=== PATIENT | female | born 1985 | race Hispanic/Latino ===

== ENCOUNTER 2018-01-31 12:09 | Inpatient (IN) | payer MEDICAID, SELFPAY ==
[2018-01-31] VITALS (9 sets, daily range): BP systolic 112–136; BP diastolic 70–83
[~2018-01-31] VITALS: Ht 152.4 cm; Wt 54.0 kg
[~2018-01-31 12:09] MED LIST: CIPR-245 PO; FLUOXETINA PO; INSU100I13 SQ; INSU100V SQ; LISI10TA7 PO; TRAMADOL PO; [UNRECOGNIZED DRUG - OTHER] PO
[2018-01-31] MEDS ORDERED: SODIUM CHLORIDE 0.9% 1000ML 1,000 ML IV ONE ×3 (12:39→15:15)
[2018-01-31] MEDS ORDERED: ONDANSETRON HCL MDV 20ML 2 MG/ML VIAL ONE (12:40)
[2018-01-31 12:43] LABS: BASOPHILS % (AUTO) 0.3 % (0.0-5.0); HEMATOCRIT 43.4 % (36-48); LYMPHOCYTES % (AUTO) 17.6 % (21.0-51.0); MEAN CORPUSCULAR HEMOGLOBIN 30.5 pg (27.0-33.0); MEAN CORPUSCULAR HGB CONC 32.5 g/dL (32.0-36.0); MEAN CORPUSCULAR VOLUME 93.7 fL (79-99); MONOCYTES % (AUTO) 6.5 % (3.0-13.0); NEUTROPHILS % (AUTO) 75.6 % (40.0-77.0); PLATELET COUNT (AUTO) 234 K/uL (130-400); RED BLOOD CELL COUNT(AUTO) 4.63 MIL/uL (4.00-5.50); RED CELL DISTRIBUTION WIDTH 15.5 % (11.0-15.5); WHITE BLOOD COUNT (AUTO) 9.3 K/uL (4.8-10.8)
[2018-01-31 12:53] LABS: ACETONE,BLOOD POSITIVE SMALL (NEGATIVE)
[2018-01-31 12:55] LABS: CHLORIDE 91 mmol/L (101-111); GLOMERULAR FILTR. RATE CALC 68 mL/min (>60); SODIUM SERUM 130 mmol/L (136-145); UREA NITROGEN, BLOOD 26 mg/dL (7-18)
[2018-01-31 12:56] LABS: ALANINE AMINOTRANSFERASE 275 U/L (12-78); ALBUMIN 3.9 g/dL (3.5-5.0); ASPARTATE AMINOTRANSFERASE 217 U/L (10-37); BILIRUBIN,TOTAL 0.7 mg/dL (0.2-1.0); CARBON DIOXIDE 11 mmol/L (21-32); GLUCOSE,RANDOM 659 mg/dL (70-105); TOTAL PROTEIN, SERUM 9.4 g/dL (6.0-8.3)
[2018-01-31 13:04] LABS: ABG BASE EXCESS -19.8 mmol/L (-2.0-3.0); ABG HCO3 7.1 mmol/L (21.0-28.0); ABG OXYGEN SATURATION 97.3 % (95.0-99.0); ABG PCO2 21 mmHg (32-45)
[2018-01-31] MEDS ORDERED: SODIUM BICARB 50MEQ 50ML VIAL ONE (13:20)
[2018-01-31] MEDS ORDERED: SODIUM CHLORIDE 0.9% 100 ML IV ONE (13:21)
[2018-01-31] MEDS ORDERED: INSULIN HUMULIN R 100 UNIT/ML 3ML ONE (13:22)
[2018-01-31 13:34] LABS: POTASSIUM 5.4 mmol/L (3.5-5.1)
[2018-01-31 14:04] LABS: APPEARANCE,URINE CLEAR (CLEAR); BILIRUBIN,URINE NEGATIVE (NEGATIVE); COLOR,URINE YELLOW (YELLOW); GLUCOSE, URINE (UA) 500 mg/dL (NEGATIVE); KETONES,URINE >=80 mg/dL (NEGATIVE); LEUKOCYTE ESTERASE ,URINE NEGATIVE (NEGATIVE); NITRATE,URINE NEGATIVE (NEGATIVE); OCCULT BLOOD,URINE TRACE-LYSED (NEGATIVE); PH,URINE 5.5 (5.0-8.0); PROTEIN,URINE 30 (NEGATIVE); UROBILINOGEN,URINE 0.2 mg/dL (0.2-1.0)
[2018-01-31 14:21] LABS: BACTERIA,URINE Rare /HPF (None Seen); MUCUS,URINE Rare LPF (None Seen); RBC,URINE 0-1 /HPF (0-1); WBC,URINE None Seen /HPF (0-1)
[2018-01-31] MEDS ORDERED: LIDOCAINE HCL-MPF 1% 2ML VIAL IVP PRN (15:15)
[2018-01-31] MEDS ORDERED: SODIUM CHLORIDE 0.9% 1000ML 1,000 ML IV PRN (15:15)
[2018-01-31] MEDS ORDERED: POTASSIUM CHLORIDE 20MEQ/100ML 100 ML IV PRN (15:15)
[2018-01-31] MEDS ORDERED: POTASSIUM CHLORIDE 10% ELIXIR 20 MEQ/15 ML UDCUP PO PRN (15:15)
[2018-01-31] MEDS ORDERED: ONDANSETRON HCL MDV 20ML 2 MG/ML VIAL IV PRN (15:15)
[2018-01-31] MEDS ORDERED: INSULIN REGULAR, HUMAN 3ML 100 UNIT in SODIUM CHLORIDE 0.9% 99 ML IV PRN ×2 (15:15)
[2018-01-31] MEDS ORDERED: HYDRALAZINE HCL 20 MG/ML VIAL IV PRN (15:15)
[2018-01-31] MEDS ORDERED: CEFTRIAXONE 2GM+NS 100ML 100 ML IV ONE (16:30)
[2018-01-31 17:03] LABS: CREATININE 0.9 mg/dL (0.5-1.5); MAGNESIUM 1.8 mg/dL (1.80-2.40); POTASSIUM 3.9 mmol/L (3.5-5.1)
[2018-01-31] MEDS ORDERED: LOSA25TA21 PO (17:09)
[2018-01-31] MEDS ORDERED: AMIT25TA9 PO (17:09)
[2018-01-31] MEDS ORDERED: INSU100V12 SQ (17:09)
[2018-01-31] MEDS ORDERED: LORA10CA9 PO (17:09)
[2018-01-31] MEDS ORDERED: FISH1CAP20 PO (17:09)
[2018-01-31] MEDS ORDERED: ATOR40TA71 PO (17:09)
[2018-01-31] MEDS ORDERED: INSU100C6 SQ (17:09)
[2018-01-31] MEDS ORDERED: CEFTRIAXONE SODIUM 2 GM VIAL IVP SCH (17:30)
[2018-01-31] MEDS: MAGNESIUM 2GM PREMIX 50ML 50 ML IV PRN (18:01)
[2018-01-31] MEDS: BENZOCAINE/MENTH/CETYLPYRD CL 1 EACH LOZENGE MM PRN ×2 (18:23→20:12)
[2018-01-31] MEDS: DEXTROSE 5 % AND 0.9 % NACL 1,000 ML IV PRN (20:11)
[2018-01-31] MEDS: FAMOTIDINE/PF 20 MG/2 ML VIAL IV SCH (20:11)
[2018-01-31 20:51] LABS: CREATININE 1.2 mg/dL (0.5-1.5); MAGNESIUM 2.2 mg/dL (1.80-2.40); POTASSIUM 3.8 mmol/L (3.5-5.1)
[2018-01-31] MEDS: POTASSIUM CHLORIDE 20 MEQ ERTAB PO PRN (23:35)
[2018-02-01] VITALS (15 sets, daily range): BP systolic 96–137; BP diastolic 53–85
[2018-02-01 00:36] LABS: CREATININE 0.9 mg/dL (0.5-1.5); MAGNESIUM 1.9 mg/dL (1.80-2.40); POTASSIUM 4.1 mmol/L (3.5-5.1)
[2018-02-01] MEDS: MAGNESIUM 2GM PREMIX 50ML 50 ML IV PRN (00:52)
[2018-02-01] MEDS: DEXTROSE 5 % AND 0.9 % NACL 1,000 ML IV PRN (02:46)
[2018-02-01 04:38] LABS: HEMATOCRIT 33.7 % (36-48); MEAN CORPUSCULAR HEMOGLOBIN 30.1 pg (27.0-33.0); MEAN CORPUSCULAR HGB CONC 34.3 g/dL (32.0-36.0); MEAN CORPUSCULAR VOLUME 87.9 fL (79-99); PLATELET COUNT (AUTO) 214 K/uL (130-400); RED BLOOD CELL COUNT(AUTO) 3.83 MIL/uL (4.00-5.50); RED CELL DISTRIBUTION WIDTH 15.4 % (11.0-15.5)
[2018-02-01 04:54] LABS: CREATININE 0.8 mg/dL (0.5-1.5); MAGNESIUM 2.6 mg/dL (1.80-2.40); POTASSIUM 3.8 mmol/L (3.5-5.1)
[2018-02-01 08:22] LABS: CREATININE 0.7 mg/dL (0.5-1.5); MAGNESIUM 2.4 mg/dL (1.80-2.40); POTASSIUM 3.4 mmol/L (3.5-5.1)
[2018-02-01] MEDS: FAMOTIDINE/PF 20 MG/2 ML VIAL IV SCH ×2 (08:33→22:04)
[2018-02-01] MEDS: ENOXAPARIN SODIUM 40 MG/0.4 ML SYRINGE SQ SCH (08:34)
[2018-02-01] MEDS: POTASSIUM CHLORIDE 20 MEQ ERTAB PO PRN ×2 (08:56→10:12)
[2018-02-01] MEDS ORDERED: INSULIN LISPRO 100 UNIT/ML 3ML SQ SCH (09:15)
[2018-02-01] MEDS: INSULIN GLARGINE 100 UNITS/ML 10 ML VIAL SQ SCH (09:19)
[2018-02-01] MEDS: LORATADINE 10 MG TABLET PO SCH (09:30)
[2018-02-01] MEDS: PHENOL 177 ML BOTTLE PO PRN (10:13)
[2018-02-01] MEDS: INSULIN HUMULIN R 100 UNIT/ML 3ML SQ SCH ×4 (11:17→23:30)
[2018-02-01] MEDS ORDERED: INSULIN HUMULIN R 100 UNIT/ML 3ML SQ SCH (11:30)
[2018-02-01] MEDS: INSULIN LISPRO 100 UNIT/ML 3ML SQ SCH ×2 (11:57→16:44)
[2018-02-01] MEDS: FISH OIL 1000 MG/CAP PO SCH ×2 (13:37→22:04)
[2018-02-01] MEDS ORDERED: CEFTRIAXONE 1GM/D5W 50ML 50 ML IV SCH (16:00)
[2018-02-01] MEDS ORDERED: CEFTRIAXONE SODIUM 1 GM IVP SCH (17:00)
[2018-02-01] MEDS ORDERED: LOSARTAN 50 MG TABLET PO SCH (21:00)
[2018-02-01] MEDS ORDERED: AMITRIPTYLINE HCL 25 MG TABLET PO SCH (21:00)
[2018-02-02] VITALS: BP 125/78
[2018-02-02] MEDS: INSULIN HUMULIN R 100 UNIT/ML 3ML SQ SCH ×3 (03:30→11:45)
[2018-02-02 04:00] VITALS: BP 129/75
[2018-02-02 05:43] LABS: HEMATOCRIT 32.1 % (36-48); MEAN CORPUSCULAR HEMOGLOBIN 31.4 pg (27.0-33.0); MEAN CORPUSCULAR HGB CONC 36.1 g/dL (32.0-36.0); MEAN CORPUSCULAR VOLUME 86.8 fL (79-99); PLATELET COUNT (AUTO) 180 K/uL (130-400); RED CELL DISTRIBUTION WIDTH 14.9 % (11.0-15.5); WHITE BLOOD COUNT (AUTO) 6.2 K/uL (4.8-10.8)
[2018-02-02 05:58] LABS: CREATININE 0.4 mg/dL (0.5-1.5); POTASSIUM 3.2 mmol/L (3.5-5.1)
[2018-02-02] MEDS: POTASSIUM CHLORIDE 20 MEQ ERTAB PO PRN ×3 (06:11→11:52)
[2018-02-02 07:59] VITALS: BP 127/80
[2018-02-02] MEDS: INSULIN LISPRO 100 UNIT/ML 3ML SQ SCH ×2 (08:00→11:46)
[2018-02-02] MEDS ORDERED: ATORVASTATIN CALCIUM 40 MG TABLET PO SCH (09:00)
[2018-02-02] MEDS: FAMOTIDINE/PF 20 MG/2 ML VIAL IV SCH (09:34)
[2018-02-02] MEDS: FISH OIL 1000 MG/CAP PO SCH ×2 (09:42→14:21)
[2018-02-02] MEDS: LORATADINE 10 MG TABLET PO SCH (09:42)
[2018-02-02] MEDS: ENOXAPARIN SODIUM 40 MG/0.4 ML SYRINGE SQ SCH (09:43)
[2018-02-02] MEDS ORDERED: GUAIFENESIN-DM 200/20 MG 10 ML PO PRN (09:45)
[2018-02-02] MEDS: PHENOL 177 ML BOTTLE PO PRN (09:48)
[2018-02-02] MEDS: INSULIN GLARGINE 100 UNITS/ML 10 ML VIAL SQ SCH (10:10)
[2018-02-02 11:30] VITALS: BP 128/83
[2018-02-02 15:05] VITALS: BP 117/78
[2018-02-02] MEDS ORDERED: Benzocaine/Menth/Cetylpyrd Cl MM (15:20)
[2018-02-02] MEDS ORDERED: AMOX500C2 PO (15:20)
[2018-02-02] MEDS ORDERED: GUAI5SYR PO (15:20)
== END 2018-02-02 16:45 | disposition home or self-care (01) | DRG 420 ==
LOC: EDH 12:09 → 2BH 12:10 → 4BH 02-01 14:00
PROVIDERS: ADMIT Family Medicine; ATTEND Family Medicine
DX: E11.10 Type 2 diabetes mellitus with ketoacidosis without coma (principal); K76.0 Fatty (change of) liver, not elsewhere classified; E11.65 Type 2 diabetes mellitus with hyperglycemia; E86.0 Dehydration; I10 Essential (primary) hypertension; J02.0 Streptococcal pharyngitis; Z83.3 Family history of diabetes mellitus
CPT/HCPCS: 36415; 36600; 71045; 80048; 80053; 81001; 82009; 82803; 82948; 83735; 84443; 84703; 85025; 85027; 87633; 87880; A4218; J0696; J1650; J1815; J3475; J3490; J7030; J7042

== ENCOUNTER → 2019-02-09 | Outpatient (CLI) | payer MEDICAID ==
[~2019-02-09] MED LIST changes: +AMIT25TA9 PO; +AMOX500C2 PO; +ATOR40TA71 PO; +Benzocaine/Menth/Cetylpyrd Cl MM; -CIPR-245 PO; +FISH1CAP20 PO; -FLUOXETINA PO; +GUAI5SYR PO; +INSU100C6 SQ; -INSU100I13 SQ; -INSU100V SQ; +INSU100V12 SQ; -LISI10TA7 PO; +LORA10CA9 PO; +LOSA25TA41 PO; -TRAMADOL PO; -[UNRECOGNIZED DRUG - OTHER] PO
== END | disposition home or self-care (01) ==
LOC: LAB 08:50
PROVIDERS: ATTEND Psychiatry & Neurology Psychiatry
DX: R00.0 Tachycardia, unspecified (principal); Z79.899 Other long term (current) drug therapy
CPT/HCPCS: 93005

== ENCOUNTER 2021-02-03 19:04 | Inpatient (IN) | payer MEDICAID ==
[~2021-02-03] VITALS: Ht 157.5 cm; Wt 61.2 kg
[2021-02-03] MEDS ORDERED: ONDANSETRON 4MG INJ ONE (19:31)
[2021-02-03] MEDS ORDERED: KETOROLAC 30MG VIAL (30MG/ML) ONE (19:33)
[2021-02-03] MEDS ORDERED: DICYCLOMINE 20MG (10MG/ML) AMP IM ONE (19:33)
[2021-02-03 19:42] LABS: BASOPHILS % (AUTO) 0.3 % (0.0-5.0); EOSINOPHILS % (AUTO) 0.2 % (0.0-8.0); HEMATOCRIT 41.5 % (36-48); MEAN CORPUSCULAR HEMOGLOBIN 29.5 pg (27.0-33.0); MEAN CORPUSCULAR HGB CONC 32.3 g/dL (32.0-36.0); MEAN CORPUSCULAR VOLUME 91.4 fL (79-99); MONOCYTES % (AUTO) 5.3 % (3.0-13.0); PLATELET COUNT (AUTO) 311 K/uL (130-400); RED BLOOD CELL COUNT(AUTO) 4.54 MIL/uL (4.00-5.50); RED CELL DISTRIBUTION WIDTH 14.4 % (11.0-15.5)
[2021-02-03 20:17] LABS: ABG BASE EXCESS -23.2 mmol/L (-2.0-3.0); ABG HCO3 5.5 mmol/L (21.0-28.0); ABG OXYGEN SATURATION 97.1 % (95.0-99.0); ABG PCO2 20 mmHg (32-45)
[2021-02-03 20:19] LABS: CREATININE 1.8 mg/dL (0.5-1.5)
[2021-02-03] MEDS ORDERED: INSULIN HUMULIN R 100 UNIT/ML 3ML ONE ×2 (20:22→20:44)
[2021-02-03 20:29] LABS: BILIRUBIN,TOTAL 0.5 mg/dL (0.2-1.0)
[2021-02-03 20:30] LABS: ALBUMIN 4.3 g/dL (3.5-5.0)
[2021-02-03] MEDS ORDERED: SODIUM BICARB 50MEQ 50ML VIAL 50 ML ONE (20:30)
[2021-02-03] MEDS ORDERED: ONDANSETRON 4MG INJ IV PRN (20:45)
[2021-02-03] MEDS ORDERED: ACETAMINOPHEN 325 MG TAB PO PRN (20:45)
[2021-02-03] MEDS ORDERED: 0.9%NACL 100ML 100 ML IV ONE (20:46)
[2021-02-03] MEDS ORDERED: FAMOTIDINE 20MG VIAL IV SCH (21:00)
[2021-02-03] MEDS ORDERED: DEXTROSE 5 %-0.45 % NACL 1,000 ML IV PRN (21:00)
[2021-02-03] MEDS ORDERED: INSULIN REGULAR, HUMAN 3ML 100 UNIT in 0.9%NACL 100ML 99 ML IV PRN ×2 (21:00)
[2021-02-03] MEDS: FAMOTIDINE 20MG VIAL IV SCH (21:00)
[2021-02-03 21:06] LABS: APPEARANCE,URINE Clear (CLEAR); BILIRUBIN,URINE Negative (NEGATIVE); COLOR,URINE Yellow (YELLOW); GLUCOSE, URINE (UA) >=1000 mg/dL (NEGATIVE); KETONES,URINE >=160 mg/dL (NEGATIVE); LEUKOCYTE ESTERASE ,URINE Negative (NEGATIVE); NITRATE,URINE Negative (NEGATIVE); OCCULT BLOOD,URINE Small (NEGATIVE); PROTEIN,URINE POS 1+ mg/dL (NEGATIVE); UROBILINOGEN,URINE 0.2 mg/dL (0.2-1.0)
[2021-02-03 21:11] LABS: MAGNESIUM 2.7 mg/dL (1.80-2.40); PHOSPHORUS 8.1 mg/dL (2.5-4.9)
[2021-02-03 21:14] LABS: AMPHET/METH SCREEN,URINE NEGATIVE (NEGATIVE); BARBITURATE SCREEN, URINE NEGATIVE (NEGATIVE); BENZODIAZEPINES SCREEN,URINE NEGATIVE (NEGATIVE); CANNABINOID SCREEN,URINE NEGATIVE (NEGATIVE); COCAINE SCREEN,URINE NEGATIVE (NEGATIVE); OPIATE SCREEN,URINE NEGATIVE (NEGATIVE); PHENCYCLIDINE SCREEN,URINE NEGATIVE (NEGATIVE)
[2021-02-03 21:16] LABS: HCG,QUAL RESULT NEGATIVE (NEGATIVE)
[2021-02-03 21:25] LABS: BACTERIA,URINE Moderate /HPF (None Seen); SQUAMOUS EPITHELIAL CELL,UR Few /HPF (0-2)
[2021-02-03] MEDS: CEFTRIAXONE 1G VIAL IVP SCH (22:00)
[2021-02-03] MEDS ORDERED: CEFTRIAXONE 1G VIAL ONE (22:15)
[2021-02-04] VITALS (21 sets, daily range): BP systolic 110–151; BP diastolic 49–91
[2021-02-04 03:22] LABS: BASOPHILS % (AUTO) 0.2 % (0.0-5.0); EOSINOPHILS % (AUTO) 0.1 % (0.0-8.0); HEMATOCRIT 32.7 % (36-48); LYMPHOCYTES % (AUTO) 15.2 % (21.0-51.0); MEAN CORPUSCULAR HEMOGLOBIN 29.9 pg (27.0-33.0); MEAN CORPUSCULAR HGB CONC 33.3 g/dL (32.0-36.0); MEAN CORPUSCULAR VOLUME 89.8 fL (79-99); NEUTROPHILS % (AUTO) 77.3 % (40.0-77.0); PLATELET COUNT (AUTO) 220 K/uL (130-400); RED BLOOD CELL COUNT(AUTO) 3.64 MIL/uL (4.00-5.50); RED CELL DISTRIBUTION WIDTH 14.6 % (11.0-15.5)
[2021-02-04 03:26] LABS: ABG BASE EXCESS -17.6 mmol/L (-2.0-3.0); ABG HCO3 8.8 mmol/L (21.0-28.0); ABG PCO2 24 mmHg (32-45)
[2021-02-04 03:31] LABS: HEMOGLOBIN A1C 9.7 % (4.0-6.0)
[2021-02-04] MEDS: 0.9%NACL 1000ML 1,000 ML IV SCH ×4 (03:40→15:17)
[2021-02-04 03:47] LABS: CREATININE 1.2 mg/dL (0.5-1.5); MAGNESIUM 2.3 mg/dL (1.80-2.40); PHOSPHORUS 5.8 mg/dL (2.5-4.9); POTASSIUM 4.2 mmol/L (3.5-5.1); THYROID STIMULATING HORMONE 0.69 uIU/mL (0.36-3.74)
[2021-02-04] MEDS ORDERED: PHENOL 177 ML BOTTLE PO PRN (05:30)
[2021-02-04] MEDS: CEFTRIAXONE 1G VIAL IVP SCH ×2 (08:12→21:05)
[2021-02-04] MEDS: ENOXAPARIN SODIUM 30 MG/0.3 ML SQ SCH (08:12)
[2021-02-04 09:14] LABS: CREATININE 1.3 mg/dL (0.5-1.5); PHOSPHORUS 2.3 mg/dL (2.5-4.9); POTASSIUM 3.5 mmol/L (3.5-5.1)
[2021-02-04] MEDS ORDERED: LIDOCAINE HCL 2% VISCOUS 30 ML, MAG/ALUM/SIMETH 30ML 30 ML, BELLADONNA-PHENOBARB ELIXIR... PO PRN ×3 (11:15)
[2021-02-04] MEDS ORDERED: LIDO 2% VISC 30ML+MAG/AL/SIMETH 30ML+DICYCLOMINE 20MG 10ML PO PRN ×3 (11:30)
[2021-02-04] MEDS ORDERED: COMPOUND PO MISCELLANEOUS 1 EACH MISC MISC PRN (11:30)
[2021-02-04 14:12] LABS: CREATININE 1.1 mg/dL (0.5-1.5); MAGNESIUM 2.2 mg/dL (1.80-2.40); PHOSPHORUS 1.7 mg/dL (2.5-4.9); POTASSIUM 3.1 mmol/L (3.5-5.1)
[2021-02-04] MEDS: POTASSIUM CHLORIDE 10MEQ/100ML 100 ML IV PRN ×2 (14:31→15:17)
[2021-02-04 15:44] LABS: ABG BASE EXCESS -3.8 mmol/L (-2.0-3.0); ABG HCO3 20.5 mmol/L (21.0-28.0); ABG OXYGEN SATURATION 94.1 % (95.0-99.0); ABG PCO2 36 mmHg (32-45)
[2021-02-04] MEDS ORDERED: COMPOUND IV REFRIGERATED 1 EACH IVSOLN MISC PRN (16:45)
[2021-02-04] MEDS: ACETAMINOPHEN 325 MG TAB PO PRN (16:57)
[2021-02-04] MEDS: 1/2NS+20MEQ KCL/1000ML 1,000 ML IV SCH (17:07)
[2021-02-04] MEDS ORDERED: INSULIN GLARGINE 100 UNITS/ML 10 ML VIAL SQ ONE (17:40)
[2021-02-04] MEDS ORDERED: INSULIN HUMULIN R 100 UNIT/ML 3ML SQ SCH (18:00)
[2021-02-04] MEDS ORDERED: DSSL PO (18:19)
[2021-02-04] MEDS ORDERED: LEVAHFA IH (18:19)
[2021-02-04] MEDS ORDERED: VITAD50000 PO (18:19)
[2021-02-04] MEDS ORDERED: TRAZ-185 PO (18:19)
[2021-02-04] MEDS ORDERED: AEC81 PO (18:19)
[2021-02-04] MEDS ORDERED: SERT-439 PO (18:21)
[2021-02-04] MEDS: INSULIN HUMULIN R 100 UNIT/ML 3ML SQ SCH (20:36)
[2021-02-04] MEDS: FAMOTIDINE 20MG VIAL IV SCH (20:38)
[2021-02-04 20:43] LABS: PHOSPHORUS 1.5 mg/dL (2.5-4.9); POTASSIUM 3.4 mmol/L (3.5-5.1)
[2021-02-05] VITALS (13 sets, daily range): BP systolic 140–171; BP diastolic 67–96
[2021-02-05] MEDS: 1/2NS+20MEQ KCL/1000ML 1,000 ML IV SCH ×3 (00:01→21:57)
[2021-02-05] MEDS: INSULIN HUMULIN R 100 UNIT/ML 3ML SQ SCH ×8 (00:08→20:42)
[2021-02-05 03:51] LABS: CREATININE 0.9 mg/dL (0.5-1.5); MAGNESIUM 2.1 mg/dL (1.80-2.40); PHOSPHORUS 1.2 mg/dL (2.5-4.9); POTASSIUM 3.2 mmol/L (3.5-5.1)
[2021-02-05] MEDS: KCL 20 MEQ ERTAB PO SCH ×2 (05:15→05:57)
[2021-02-05] MEDS ORDERED: CALCIUM AC 667MG CAP PO SCH (05:15)
[2021-02-05] MEDS ORDERED: SOD PHOSPHATE 45 MMOL/15 ML VI 15 MMOL in 0.9% NACL 250ML 250 ML IV PRN (07:45)
[2021-02-05 07:53] LABS: BASOPHILS % (AUTO) 0.2 % (0.0-5.0); EOSINOPHILS % (AUTO) 0.1 % (0.0-8.0); HEMATOCRIT 30.5 % (36-48); LYMPHOCYTES % (AUTO) 20.3 % (21.0-51.0); MEAN CORPUSCULAR HEMOGLOBIN 29.3 pg (27.0-33.0); MEAN CORPUSCULAR HGB CONC 33.8 g/dL (32.0-36.0); MEAN CORPUSCULAR VOLUME 86.9 fL (79-99); MONOCYTES % (AUTO) 6.5 % (3.0-13.0); NEUTROPHILS % (AUTO) 72.4 % (40.0-77.0); PLATELET COUNT (AUTO) 184 K/uL (130-400); RED BLOOD CELL COUNT(AUTO) 3.51 MIL/uL (4.00-5.50); RED CELL DISTRIBUTION WIDTH 15.6 % (11.0-15.5); WHITE BLOOD COUNT (AUTO) 13.2 K/uL (4.8-10.8)
[2021-02-05] MEDS: ACETAMINOPHEN 325 MG TAB PO PRN (08:09)
[2021-02-05] MEDS: ENOXAPARIN SODIUM 30 MG/0.3 ML SQ SCH (08:10)
[2021-02-05] MEDS ORDERED: LEVALBUTEROL TARTRATE IH SCH (08:45)
[2021-02-05] MEDS ORDERED: TRAZODONE HCL 50 MG TAB PO SCH (08:45)
[2021-02-05] MEDS ORDERED: CHOLECALCIFEROL 50000 UNIT PO SCH (09:00)
[2021-02-05] MEDS: CEFTRIAXONE 1G VIAL IVP SCH (09:17)
[2021-02-05] MEDS: DOCUSATE NA 100MG/10ML UDCUP PO SCH (09:17)
[2021-02-05] MEDS: ASPIRIN 81 MG EC TAB PO SCH (09:17)
[2021-02-05] MEDS ORDERED: BENZOCAINE/MENTH/CETYLPYRD CL 1 EACH LOZENGE MM PRN (10:45)
[2021-02-05] MEDS: ZOSYN 3.375GM+NS 50ML 50 ML IV SCH ×2 (12:16→20:31)
[2021-02-05 13:43] LABS: PHOSPHORUS 1.1 mg/dL (2.5-4.9)
[2021-02-05] MEDS ORDERED: SOLU-MEDROL 40MG VIAL ONE (14:27)
[2021-02-05] MEDS: APAP/CODEINE 120/12MG 5ML PO PRN ×2 (14:34→21:57)
[2021-02-05] MEDS ORDERED: SOLU-MEDROL 40MG VIAL IVP SCH (16:40)
[2021-02-05] MEDS ORDERED: INSULIN GLARGINE 100 UNITS/ML 10 ML VIAL SQ SCH (17:00)
[2021-02-05 20:14] LABS: MAGNESIUM 2.1 mg/dL (1.80-2.40); PHOSPHORUS 1.9 mg/dL (2.5-4.9)
[2021-02-05] MEDS: FAMOTIDINE 20MG VIAL IV SCH (20:31)
[2021-02-05] MEDS: SERTRALINE HCL 50 MG TABLET PO SCH (20:32)
[2021-02-05] MEDS: AMITRIPTYLINE 25 MG TABLET PO SCH (20:32)
[2021-02-05] MEDS: LOSARTAN 25 MG TABLET PO SCH (20:32)
[2021-02-06] VITALS (7 sets, daily range): BP systolic 120–152; BP diastolic 62–92
[2021-02-06] MEDS: INSULIN HUMULIN R 100 UNIT/ML 3ML SQ SCH ×7 (00:16→21:19)
[2021-02-06] MEDS: ZOSYN 3.375GM+NS 50ML 50 ML IV SCH ×3 (04:45→21:09)
[2021-02-06] MEDS: KCL 20 MEQ ERTAB PO SCH (05:04)
[2021-02-06 05:42] LABS: HEMATOCRIT 31.1 % (36-48); LYMPHOCYTES % (AUTO) 22.6 % (21.0-51.0); MEAN CORPUSCULAR HEMOGLOBIN 30.2 pg (27.0-33.0); MEAN CORPUSCULAR HGB CONC 35.4 g/dL (32.0-36.0); MEAN CORPUSCULAR VOLUME 85.4 fL (79-99); MONOCYTES % (AUTO) 7.4 % (3.0-13.0); NEUTROPHILS % (AUTO) 69.4 % (40.0-77.0); PLATELET COUNT (AUTO) 182 K/uL (130-400); RED BLOOD CELL COUNT(AUTO) 3.64 MIL/uL (4.00-5.50); RED CELL DISTRIBUTION WIDTH 14.6 % (11.0-15.5); WHITE BLOOD COUNT (AUTO) 10.1 K/uL (4.8-10.8)
[2021-02-06 05:54] LABS: BILIRUBIN,TOTAL 0.4 mg/dL (0.2-1.0); CREATININE 0.7 mg/dL (0.5-1.5); POTASSIUM 3.7 mmol/L (3.5-5.1); TOTAL PROTEIN, SERUM 7.2 g/dL (6.0-8.3)
[2021-02-06] MEDS: APAP/CODEINE 120/12MG 5ML PO PRN ×2 (06:11→17:21)
[2021-02-06] MEDS ORDERED: INSULIN HUMULIN R 100 UNIT/ML 3ML SQ SCH ×2 (07:30→11:30)
[2021-02-06] MEDS: DOCUSATE NA 100MG/10ML UDCUP PO SCH (09:50)
[2021-02-06] MEDS: ASPIRIN 81 MG EC TAB PO SCH (09:50)
[2021-02-06] MEDS: ENOXAPARIN SODIUM 30 MG/0.3 ML SQ SCH (09:52)
[2021-02-06] MEDS: 1/2NS+20MEQ KCL/1000ML 1,000 ML IV SCH (12:13)
[2021-02-06] MEDS ORDERED: INSULIN GLARGINE 100 UNITS/ML 10 ML VIAL SQ SCH (17:00)
[2021-02-06] MEDS: SERTRALINE HCL 50 MG TABLET PO SCH (21:09)
[2021-02-06] MEDS: AMITRIPTYLINE 25 MG TABLET PO SCH (21:09)
[2021-02-06] MEDS: LOSARTAN 25 MG TABLET PO SCH (21:09)
[2021-02-06] MEDS: FAMOTIDINE 20MG VIAL IV SCH (21:11)
[2021-02-07] MEDS: 1/2NS+20MEQ KCL/1000ML 1,000 ML IV SCH (00:02)
[2021-02-07 03:31] VITALS: BP 152/94
[2021-02-07] MEDS: KCL 20 MEQ ERTAB PO SCH (04:33)
[2021-02-07] MEDS: ZOSYN 3.375GM+NS 50ML 50 ML IV SCH (05:04)
[2021-02-07] MEDS: INSULIN HUMULIN R 100 UNIT/ML 3ML SQ SCH ×2 (05:34→06:26)
[2021-02-07 05:36] LABS: BASOPHILS % (AUTO) 0.1 % (0.0-5.0); EOSINOPHILS % (AUTO) 3.5 % (0.0-8.0); LYMPHOCYTES % (AUTO) 44.4 % (21.0-51.0); MEAN CORPUSCULAR HEMOGLOBIN 28.9 pg (27.0-33.0); MEAN CORPUSCULAR HGB CONC 33.3 g/dL (32.0-36.0); MEAN CORPUSCULAR VOLUME 86.6 fL (79-99); MONOCYTES % (AUTO) 6.4 % (3.0-13.0); NEUTROPHILS % (AUTO) 45.2 % (40.0-77.0); PLATELET COUNT (AUTO) 179 K/uL (130-400); RED BLOOD CELL COUNT(AUTO) 3.81 MIL/uL (4.00-5.50); RED CELL DISTRIBUTION WIDTH 14.6 % (11.0-15.5); WHITE BLOOD COUNT (AUTO) 7.6 K/uL (4.8-10.8)
[2021-02-07 06:04] LABS: ALBUMIN 2.8 g/dL (3.5-5.0); BILIRUBIN,TOTAL 0.3 mg/dL (0.2-1.0); CREATININE 0.6 mg/dL (0.5-1.5); CRP QUANTITATIVE 41.6 mg/L (0.00-9.0); POTASSIUM 3.4 mmol/L (3.5-5.1); TOTAL PROTEIN, SERUM 6.7 g/dL (6.0-8.3)
[2021-02-07] MEDS: APAP/CODEINE 120/12MG 5ML PO PRN (06:24)
[2021-02-07 06:54] LABS: ERYTHROCYTE SEDIMENTATION RATE 52 MM/HR (0-20)
[2021-02-07 08:35] VITALS: BP 139/78
[2021-02-07] MEDS: ENOXAPARIN SODIUM 30 MG/0.3 ML SQ SCH (09:00)
[2021-02-07] MEDS: DOCUSATE NA 100MG/10ML UDCUP PO SCH (09:00)
[2021-02-07] MEDS: ASPIRIN 81 MG EC TAB PO SCH (10:00)
[2021-02-07] MEDS ORDERED: INSULIN GLARGINE 100 UNITS/ML 10 ML VIAL SQ SCH (17:00)
[2021-04-15] MEDS ORDERED: INSU100C14 SQ (09:57)
[2021-04-17] MEDS ORDERED: INSU200I SQ (09:10)
[2021-04-17] MEDS ORDERED: INSU200I4 SQ (09:10)
[2021-04-30] MEDS ORDERED: LISI2.5T13 PO (00:37)
[2021-05-02] MEDS ORDERED: LEVO500T90 PO (11:53)
[2021-05-02] MEDS ORDERED: METO25 PO (11:53)
[2021-05-02] MEDS ORDERED: LOSA25TA41 PO (11:53)
== END 2021-02-07 12:30 | disposition home or self-care (01) | DRG 813 ==
LOC: EDH 19:04 → EDHIP 19:05 → 2DH 02-04 01:42 → 3CH 02-05 18:03
PROVIDERS: ADMIT Family Medicine; ATTEND Family Medicine
DX: T85.694A Other mechanical complication of insulin pump, initial encounter (principal); E10.10 Type 1 diabetes mellitus with ketoacidosis without coma; E87.0 Hyperosmolality and hypernatremia; E87.5 Hyperkalemia; E86.0 Dehydration; E87.6 Hypokalemia; N39.0 Urinary tract infection, site not specified; D64.9 Anemia, unspecified; J03.90 Acute tonsillitis, unspecified; E78.5 Hyperlipidemia, unspecified; J21.9 Acute bronchiolitis, unspecified; I10 Essential (primary) hypertension; Y74.2 Prosthetic and other implants, materials and accessory general hospital and personal-use devices associated with adverse incidents; Z96.41 Presence of insulin pump (external) (internal); T38.3X6A Underdosing of insulin and oral hypoglycemic [antidiabetic] drugs, initial encounter; E78.00 Pure hypercholesterolemia, unspecified; Z20.822 Contact with and (suspected) exposure to COVID-19; Z83.3 Family history of diabetes mellitus; Z82.49 Family history of ischemic heart disease and other diseases of the circulatory system; Z98.891 History of uterine scar from previous surgery; Z79.899 Other long term (current) drug therapy; Z79.82 Long term (current) use of aspirin; Z91.19 Patient's noncompliance with other medical treatment and regimen
CPT/HCPCS: 36415; 36600; 70490; 71045; 80048; 80053; 80061; 80305; 81001; 81025; 82010; 82435; 82550; 82803; 82947; 82948; 83036; 83605; 83690; 83735; 84100; 84132; 84145; 84295; 84443; 84484; 85018; 85025; 85651; 86140; 87040; 87088; 87426; 87804; 87880; 93005; 99291; G0378; J0500; J0696; J1650; J1815; J1885; J2405; J2543; J2920; J3480; J3490; J7030; J7042; U0003

== ENCOUNTER → 2021-03-21 | Outpatient (CLI) | payer MEDICAID ==
[~2021-03-21] MED LIST changes: +AEC81 PO; +DSSL PO; +LEVAHFA IH; +SERT-439 PO; +TRAZ-185 PO; +VITAD50000 PO
== END | disposition home or self-care (01) ==
LOC: LAB 11:01
PROVIDERS: ATTEND Psychiatry & Neurology Psychiatry
DX: R00.0 Tachycardia, unspecified (principal); Z79.899 Other long term (current) drug therapy
CPT/HCPCS: 93005

== ENCOUNTER → 2021-04-06 | Outpatient (CLI) | payer MEDICAID | END | disposition home or self-care (01) | LOC: RAH 08:24 | PROVIDERS: ATTEND Internal Medicine Endocrinology, Diabetes & Metabolism | DX: E04.1 Nontoxic single thyroid nodule (principal); E78.5 Hyperlipidemia, unspecified; E10.65 Type 1 diabetes mellitus with hyperglycemia | CPT/HCPCS: 76536 ==

== ENCOUNTER 2021-04-10 12:27 | Inpatient (IN) | payer MEDICAID ==
[~2021-04-10] VITALS: Ht 144.8 cm; Wt 59.0 kg
[2021-04-10 12:33] VITALS: BP 90/55
[2021-04-10 13:05] LABS: BASOPHILS % (AUTO) 0.3 % (0.0-5.0); EOSINOPHILS % (AUTO) 0.1 % (0.0-8.0); HEMATOCRIT 40.8 % (36-48); LYMPHOCYTES % (AUTO) 12.7 % (21.0-51.0); MEAN CORPUSCULAR HEMOGLOBIN 29.2 pg (27.0-33.0); MEAN CORPUSCULAR HGB CONC 31.1 g/dL (32.0-36.0); MEAN CORPUSCULAR VOLUME 93.8 fL (79-99); MONOCYTES % (AUTO) 3.8 % (3.0-13.0); NEUTROPHILS % (AUTO) 82.3 % (40.0-77.0); PLATELET COUNT (AUTO) 305 K/uL (130-400); RED BLOOD CELL COUNT(AUTO) 4.35 MIL/uL (4.00-5.50); RED CELL DISTRIBUTION WIDTH 13.8 % (11.0-15.5); WHITE BLOOD COUNT (AUTO) 19.8 K/uL (4.8-10.8)
[2021-04-10 13:17] LABS: APPEARANCE,URINE Cloudy (CLEAR); BILIRUBIN,URINE Negative (NEGATIVE); COLOR,URINE Yellow (YELLOW); GLUCOSE, URINE (UA) >=1000 mg/dL (NEGATIVE); KETONES,URINE >=160 mg/dL (NEGATIVE); LEUKOCYTE ESTERASE ,URINE Negative (NEGATIVE); NITRATE,URINE Negative (NEGATIVE); OCCULT BLOOD,URINE Trace (NEGATIVE); PROTEIN,URINE Trace mg/dL (NEGATIVE); UROBILINOGEN,URINE 0.2 mg/dL (0.2-1.0)
[2021-04-10 13:19] LABS: RBC,URINE 0-1 /HPF (0-1); WBC,URINE 0-1 /HPF (0-1)
[2021-04-10 13:20] LABS: BACTERIA,URINE Few /HPF (None Seen); SQUAMOUS EPITHELIAL CELL,UR Rare /HPF (0-2)
[2021-04-10] MEDS: PROMETHAZINE HCL 25 MG/ML 1ML AMPULE IM SCH (13:27)
[2021-04-10] MEDS: INSULIN HUMULIN R 100 UNIT/ML 3ML IV SCH (13:28)
[2021-04-10] MEDS: 0.9%NACL 1000ML 1,000 ML IV SCH ×6 (13:28→19:30)
[2021-04-10 13:40] LABS: ALBUMIN 4.4 g/dL (3.5-5.0); BILIRUBIN,TOTAL 0.5 mg/dL (0.2-1.0); CREATININE 1.4 mg/dL (0.5-1.5); POTASSIUM 5.2 mmol/L (3.5-5.1); TOTAL PROTEIN, SERUM 9.3 g/dL (6.0-8.3)
[2021-04-10 13:44] LABS: ABG HCO3 9.2 mmol/L (21.0-28.0); ABG OXYGEN SATURATION 96.8 % (95.0-99.0); ABG PCO2 27 mmHg (32-45)
[2021-04-10] MEDS ORDERED: ACETAMINOPHEN 325 MG TAB PO PRN (14:30)
[2021-04-10] MEDS ORDERED: ONDANSETRON 4MG INJ IV PRN (14:30)
[2021-04-10] MEDS ORDERED: 0.9%NACL 1000ML 1,000 ML IV SCH (14:30)
[2021-04-10] MEDS ORDERED: POTASSIUM CHLORIDE 10MEQ/100ML 100 ML IV PRN (14:30)
[2021-04-10] MEDS ORDERED: LACTULOSE 20 GM/30 ML UDCUP PO PRN (14:30)
[2021-04-10] MEDS ORDERED: DEXTROSE 5 %-0.45 % NACL 1,000 ML IV PRN (14:30)
[2021-04-10] MEDS ORDERED: 0.9%NACL 1000ML 1,000 ML IV ONE (14:33)
[2021-04-10 15:20] LABS: CREATININE 1.5 mg/dL (0.5-1.5); POTASSIUM 4.6 mmol/L (3.5-5.1)
[2021-04-10] MEDS: INSULIN REGULAR, HUMAN 3ML 100 UNIT in 0.9%NACL 100ML 99 ML IV PRN ×14 (15:48→23:45)
[2021-04-10 15:52] VITALS: BP 107/62
[2021-04-10] MEDS ORDERED: ONDANSETRON 4MG INJ IVP ONE (17:15)
[2021-04-10 17:22] VITALS: BP 127/73
[2021-04-10 18:22] VITALS: BP 131/67
[2021-04-10 18:46] LABS: ABG BASE EXCESS -6.7 mmol/L (-2.0-3.0); ABG HCO3 18.1 mmol/L (21.0-28.0); ABG PCO2 34 mmHg (32-45)
[2021-04-10 19:17] LABS: POTASSIUM 4.2 mmol/L (3.5-5.1)
[2021-04-10 22:21] VITALS: BP 132/66
[2021-04-10 23:10] LABS: POTASSIUM 3.9 mmol/L (3.5-5.1)
[2021-04-11] VITALS (15 sets, daily range): BP systolic 112–143; BP diastolic 40–87
[2021-04-11] MEDS: INSULIN REGULAR, HUMAN 3ML 100 UNIT in 0.9%NACL 100ML 99 ML IV PRN ×16 (00:40→13:14)
[2021-04-11 05:04] LABS: BASOPHILS % (AUTO) 0.1 % (0.0-5.0); EOSINOPHILS % (AUTO) 0.2 % (0.0-8.0); HEMATOCRIT 33.4 % (36-48); LYMPHOCYTES % (AUTO) 13.1 % (21.0-51.0); MEAN CORPUSCULAR HEMOGLOBIN 29.7 pg (27.0-33.0); MEAN CORPUSCULAR HGB CONC 32.9 g/dL (32.0-36.0); MEAN CORPUSCULAR VOLUME 90.3 fL (79-99); MONOCYTES % (AUTO) 6.3 % (3.0-13.0); NEUTROPHILS % (AUTO) 79.7 % (40.0-77.0); PLATELET COUNT (AUTO) 213 K/uL (130-400); RED CELL DISTRIBUTION WIDTH 14.2 % (11.0-15.5)
[2021-04-11 05:28] LABS: POTASSIUM 3.7 mmol/L (3.5-5.1)
[2021-04-11 06:11] LABS: CREATININE 0.9 mg/dL (0.5-1.5); POTASSIUM 3.8 mmol/L (3.5-5.1)
[2021-04-11] MEDS ORDERED: PHARMACY COMMUNICATION MISC SCH (08:15)
[2021-04-11] MEDS: ENOXAPARIN SODIUM 40 MG/0.4 ML SYRINGE SQ SCH (09:00)
[2021-04-11] MEDS ORDERED: LACTATED RINGERS 1000ML IV SCH (09:00)
[2021-04-11] MEDS ORDERED: LACTATED RINGERS 1000ML 1,000 ML IV ONE (09:01)
[2021-04-11] MEDS ORDERED: LACTATED RINGERS 1000ML 1,000 ML IV SCH (09:15)
[2021-04-11] MEDS: 0.9%NACL 1000ML 1,000 ML IV SCH ×4 (10:30→20:53)
[2021-04-11 10:44] LABS: CREATININE 0.9 mg/dL (0.5-1.5); POTASSIUM 3.8 mmol/L (3.5-5.1)
[2021-04-11] MEDS: PROMETHAZINE HCL 25 MG/ML 1ML AMPULE IM SCH (12:02)
[2021-04-11] MEDS: INSULIN HUMULIN R 100 UNIT/ML 3ML IV SCH (12:03)
[2021-04-11] MEDS: PHENOL 177 ML BOTTLE PO PRN (13:15)
[2021-04-11 14:07] LABS: CREATININE 0.7 mg/dL (0.5-1.5); POTASSIUM 3.5 mmol/L (3.5-5.1)
[2021-04-11] MEDS: INSULIN HUMULIN R 100 UNIT/ML 3ML SQ SCH ×3 (16:51→21:00)
[2021-04-11 17:47] LABS: CREATININE 0.7 mg/dL (0.5-1.5); POTASSIUM 3.3 mmol/L (3.5-5.1)
[2021-04-11] MEDS: INSULIN GLARGINE 100 UNITS/ML 10 ML VIAL SQ SCH (21:00)
[2021-04-11] MEDS ORDERED: GLUCAGON 1MG KIT 1 MG ML IM PRN (22:15)
[2021-04-11] MEDS ORDERED: DEXTROSE 50%-WATER 50 ML DISP.SYRIN IV PRN (22:15)
[2021-04-11 22:26] LABS: POTASSIUM 3.2 mmol/L (3.5-5.1)
[2021-04-12] VITALS (12 sets, daily range): BP systolic 127–168; BP diastolic 74–95
[2021-04-12] MEDS: 0.9%NACL 1000ML 1,000 ML IV SCH ×3 (01:30→20:48)
[2021-04-12 05:26] LABS: ALBUMIN 2.8 g/dL (3.5-5.0); BILIRUBIN,TOTAL 0.1 mg/dL (0.2-1.0); CREATININE 0.7 mg/dL (0.5-1.5); POTASSIUM 3.5 mmol/L (3.5-5.1); TOTAL PROTEIN, SERUM 6.4 g/dL (6.0-8.3)
[2021-04-12] MEDS: INSULIN HUMULIN R 100 UNIT/ML 3ML SQ SCH ×8 (05:30→20:36)
[2021-04-12] MEDS: ENOXAPARIN SODIUM 40 MG/0.4 ML SYRINGE SQ SCH (10:25)
[2021-04-12] MEDS: ACETAMINOPHEN 325 MG TAB PO PRN (12:43)
[2021-04-12] MEDS: PROMETHAZINE HCL 25 MG/ML 1ML AMPULE IM SCH (13:00)
[2021-04-12] MEDS: AMOXICILLIN 500 MG CAPSULE PO SCH (18:24)
[2021-04-12] MEDS ORDERED: KCL 20 MEQ ERTAB PO ONE (20:00)
[2021-04-12] MEDS ORDERED: MAGNESIUM 2GM PREMIX 50ML 50 ML IV SCH (20:00)
[2021-04-12] MEDS: INSULIN GLARGINE 100 UNITS/ML 10 ML VIAL SQ SCH (20:36)
[2021-04-13] VITALS: BP 145/86
[2021-04-13] MEDS: ACETAMINOPHEN 325 MG TAB PO PRN ×2 (01:15→05:50)
[2021-04-13] MEDS: PHENOL 177 ML BOTTLE PO PRN (01:15)
[2021-04-13 04:00] VITALS: BP 134/74
[2021-04-13 05:09] LABS: BASOPHILS % (AUTO) 0.2 % (0.0-5.0); EOSINOPHILS % (AUTO) 3.5 % (0.0-8.0); HEMATOCRIT 35.1 % (36-48); LYMPHOCYTES % (AUTO) 36.1 % (21.0-51.0); MEAN CORPUSCULAR HEMOGLOBIN 29.5 pg (27.0-33.0); MEAN CORPUSCULAR HGB CONC 33.6 g/dL (32.0-36.0); MEAN CORPUSCULAR VOLUME 87.8 fL (79-99); MONOCYTES % (AUTO) 6.4 % (3.0-13.0); NEUTROPHILS % (AUTO) 53.4 % (40.0-77.0); PLATELET COUNT (AUTO) 203 K/uL (130-400); RED CELL DISTRIBUTION WIDTH 13.9 % (11.0-15.5); WHITE BLOOD COUNT (AUTO) 9.4 K/uL (4.8-10.8)
[2021-04-13 05:45] LABS: ALBUMIN 3.4 g/dL (3.5-5.0); BILIRUBIN,TOTAL 0.2 mg/dL (0.2-1.0); CREATININE 0.5 mg/dL (0.5-1.5); MAGNESIUM 2.2 mg/dL (1.80-2.40); POTASSIUM 4.1 mmol/L (3.5-5.1); TOTAL PROTEIN, SERUM 7.7 g/dL (6.0-8.3)
[2021-04-13] MEDS: AMOXICILLIN 500 MG CAPSULE PO SCH (05:50)
[2021-04-13] MEDS: INSULIN HUMULIN R 100 UNIT/ML 3ML SQ SCH ×2 (05:53)
[2021-04-13 08:00] VITALS: BP 139/84
[2021-04-13] MEDS ORDERED: AMOX500C2 PO (08:31)
[2021-04-13] MEDS: ENOXAPARIN SODIUM 40 MG/0.4 ML SYRINGE SQ SCH (08:45)
[2021-04-13] MEDS ORDERED: INSULIN HUMULIN R 100 UNIT/ML 3ML SQ SCH (11:30)
[2021-04-15] MEDS ORDERED: INSU100C14 SQ (09:57)
[2021-04-17] MEDS ORDERED: INSU200I4 SQ (09:10)
[2021-04-17] MEDS ORDERED: INSU200I SQ (09:10)
[2021-04-30] MEDS ORDERED: LISI2.5T13 PO (00:37)
[2021-05-02] MEDS ORDERED: METO25 PO (11:53)
[2021-05-02] MEDS ORDERED: LOSA25TA41 PO (11:53)
[2021-05-02] MEDS ORDERED: LEVO500T90 PO (11:53)
== END 2021-04-13 09:45 | disposition home or self-care (01) | DRG 420 ==
LOC: EDH 12:27 → EDHIP 12:30 → UNDOADMIN 14:17 → EDHIP 14:17 → 2DH 04-11 11:05 → 3AH 04-12 12:27
PROVIDERS: ADMIT Family Medicine; ATTEND Family Medicine
DX: E10.10 Type 1 diabetes mellitus with ketoacidosis without coma (principal); N17.9 Acute kidney failure, unspecified; E87.5 Hyperkalemia; E10.40 Type 1 diabetes mellitus with diabetic neuropathy, unspecified; E86.1 Hypovolemia; E87.1 Hypo-osmolality and hyponatremia; I10 Essential (primary) hypertension; E78.5 Hyperlipidemia, unspecified; F32.9 Major depressive disorder, single episode, unspecified; E86.0 Dehydration; J45.909 Unspecified asthma, uncomplicated; E78.00 Pure hypercholesterolemia, unspecified; J02.0 Streptococcal pharyngitis; R74.8 Abnormal levels of other serum enzymes; Z20.822 Contact with and (suspected) exposure to COVID-19; Z96.41 Presence of insulin pump (external) (internal); Z79.4 Long term (current) use of insulin; Z83.3 Family history of diabetes mellitus; Z82.49 Family history of ischemic heart disease and other diseases of the circulatory system
CPT/HCPCS: 36415; 36600; 71045; 80048; 80053; 81001; 81025; 82010; 82140; 82435; 82550; 82803; 82947; 82948; 83605; 83735; 84132; 84295; 84484; 85018; 85025; 87635; 87804; 87880; G0378; J1650; J1815; J2405; J2550; J3475; J7030; J7042; J7120

== ENCOUNTER 2021-05-16 13:19 | Emergency (ER) | payer MEDICAID ==
[~2021-05-16] VITALS: Ht 144.8 cm; Wt 58.1 kg
[~2021-05-16 13:19] MED LIST changes: -AMOX500C2 PO; -Benzocaine/Menth/Cetylpyrd Cl MM; -DSSL PO; -FISH1CAP20 PO; -GUAI5SYR PO; -INSU100C6 SQ; -INSU100V12 SQ; +INSU200I SQ; +INSU200I4 SQ; -LEVAHFA IH; +LEVO500T89 PO; -LORA10CA9 PO; +METO25 PO; -TRAZ-185 PO; -VITAD50000 PO
[2021-05-16 13:20] VITALS: BP 134/78
[2021-05-16 13:55] VITALS: BP 105/79
[2021-05-16 15:17] VITALS: BP 111/70
[2021-05-16] MEDS ORDERED: MUPI22O TP (16:19)
[2021-05-16] MEDS ORDERED: CEPH500B PO (16:19)
== END 2021-05-16 16:31 | disposition home or self-care (01) ==
LOC: EDH 13:19
DX: T80.1XXA Vascular complications following infusion, transfusion and therapeutic injection, initial encounter (principal); S61.431A Puncture wound without foreign body of right hand, initial encounter; E78.00 Pure hypercholesterolemia, unspecified; E11.9 Type 2 diabetes mellitus without complications; I10 Essential (primary) hypertension; Z79.4 Long term (current) use of insulin; Z79.899 Other long term (current) drug therapy; Z79.82 Long term (current) use of aspirin; Z98.890 Other specified postprocedural states; T80.29XA Infection following other infusion, transfusion and therapeutic injection, initial encounter; X58.XXXA Exposure to other specified factors, initial encounter; Y93.89 Activity, other specified; Y92.89 Other specified places as the place of occurrence of the external cause; Y99.8 Other external cause status

== ENCOUNTER → 2022-08-03 | Outpatient (CLI) | payer MEDICAID ==
[~2022-08-03] MED LIST changes: +CEPH500B PO; +LEVO-70 PO; -LEVO500T89 PO; +MUPI22O TP
== END | disposition home or self-care (01) ==
LOC: SHCH 07:35
PROVIDERS: ATTEND Student in an Organized Health Care Education/Training Program
DX: R00.2 Palpitations (principal)
CPT/HCPCS: 93306

== ENCOUNTER → 2023-05-02 | Outpatient (CLI) | payer MEDICAID ==
[~2023-05-02] MED LIST changes: -AEC81 PO; +AMIT50TA3 PO; +ASPI-1005 PO; +ASPI-1197 PO; +ATOR40TA69 PO; -CEPH500B PO; +INSU100I24 SQ; +INSU100V3 SQ; -INSU200I SQ; -INSU200I4 SQ; -LEVO-70 PO; +LISI2.5T13 PO; +LORA10TA7 PO; +MELO10CA3 PO; +METF-444 PO; +METH-811 PO; -MUPI22O TP; +PANT40TA PO; +SERT200C PO
== END | disposition home or self-care (01) ==
LOC: RAH 09:14
PROVIDERS: ATTEND Internal Medicine Gastroenterology
DX: R12 Heartburn (principal); R13.10 Dysphagia, unspecified; K21.9 Gastro-esophageal reflux disease without esophagitis
CPT/HCPCS: 74240